=== PATIENT | male | born 1950 | race Two or more races ===

== ENCOUNTER 2017-08-06 07:45 | Outpatient (CLI) | payer OTHER | END 2017-08-06 07:47 | disposition home or self-care (01) | LOC: RAD 07:45 | DX: M12.842 Other specific arthropathies, not elsewhere classified, left hand (principal); M19.042 Primary osteoarthritis, left hand ==

== ENCOUNTER 2018-11-16 10:01 | Outpatient (CLI) | payer OTHER | END 2018-11-16 16:25 | disposition home or self-care (01) | LOC: RAD 10:01 | DX: M13.842 Other specified arthritis, left hand (principal) ==

== ENCOUNTER → 2024-02-13 | Emergency (ER) | payer OTHER ==
[~2024-02-13] VITALS: Ht 172.7 cm; Wt 54.4 kg
[~2024-02-13] MED LIST: CLINDAMYCIN PHOSPHATE 150 MG/ML (300mg) ONE; CLINDAMYCIN PHOSPHATE 150 MG/ML (600mg) IM ONE; TETANUS & DIPHTHERIA TOX,ADULT 0.5 ML VIAL IM ONE; TETANUS DIPHTHERIA TOX. ADSOR 5 ML VIAL IM ONE
[2024-02-13 19:51] LABS: HEMATOCRIT 39.6 % (39.0-48.0); HEMOGLOBIN 13.3 g/dL (13-16.00); MEAN CELL VOLUME 85.1 fL (80.0-100.00); MEAN CORPUSCULAR HEMOGLOBIN 28.5 pg (27.00-32.0); MEAN CORPUSCULAR HGB CONC 33.5 g/dl (32.0-36.0); PLATELET COUNT 556 K/uL (150-450); RED BLOOD COUNT 4.66 M/uL (4.00-6.00); RED CELL DISTRIBUTION WIDTH 14.4 % (11.5-14.5)
[2024-02-13 20:16] LABS: CALCIUM 9.4 mg/dL (8.5-10.1); CREATININE SERUM 0.74 mg/dL (0.70-1.30); GFR 103.97; POTASSIUM 4.92 mEq/L (3.5-5.1)
== END | disposition left against medical advice (07) ==
LOC: ER 17:23
PROVIDERS: Nurse Practitioner Family
DX: L03.113 Cellulitis of right upper limb (principal)
CPT/HCPCS: 36415; 90471; 90714; 96372; 99282; J1670; J3490

== ENCOUNTER → 2025-06-25 | Emergency (ER) | payer OTHER ==
[~2025-06-25] VITALS: Ht 172.7 cm; Wt 59.0 kg
[~2025-06-25] MED LIST changes: -CLINDAMYCIN PHOSPHATE 150 MG/ML (300mg) ONE; +KETOROLAC TROMETHAMINE 30 MG VIAL IM ONE; +METRONIDAZOLE500 MG PO; -TETANUS DIPHTHERIA TOX. ADSOR 5 ML VIAL IM ONE
== END | disposition home or self-care (01) ==
LOC: ER 02:09
DX: S90.811A Abrasion, right foot, initial encounter (principal)
CPT/HCPCS: 36415; 90471; 90714; 96372; 99282; J1670; J1885; J3490

== ENCOUNTER 2025-06-29 14:16 | Inpatient (IN) | payer OTHER ==
[~2025-06-29] VITALS: Ht 172.7 cm; Wt 59.0 kg
--- NOTE | 2025-06-29 15:28 | NUR ---
PTE ALERTA Y ORIENTADO X3 REFIERE VENIR POR ULCERAS EN EL PIE DERECHO. PTE REFIERE SER FUMADOR DE ANOS. SE ALEJANDRO S/V Y SE UBICA.
[2025-06-29] MEDS ORDERED: CEFTRIAXONE SODIUM 2,000 MG VIAL IV ONE (16:15)
[2025-06-29] MEDS ORDERED: CEFTRIAXONE SODIUM 2,000 MG VIAL ONE (16:27)
[2025-06-29 16:56] LABS: BASO % 0.9 % (0.1-1.2); EOS # 0.92 (0.04-0.54); EOS % 9.1 % (0.7-7.0); LYMPH # 2.27 (1.18-3.74); LYMPH % 22.4 % (19.3-53.1); MEAN PLATELET VOLUME 8.90 fl (9.4-12.4); MONO # 0.71 (0.24-0.82); MONO % 7.0 % (4.7-12.5); NEUT # 6.09 (1.56-6.13); NEUT % 60.1 % (34.0-71.1); RED CELL DISTRIBUTION WIDTH 13.2 % (11.6-14.4)
--- NOTE | 2025-06-29 17:06 | NUR ---
PTE EVALUADO POR GLORY VALADEZ, PRESENTANDO ULCERA EN PIE DERCHO Y ANTEBRAZO DERECHO, SE RAVEN MUESTRAS DE [place]URE[place]O BAJO MEDIDAS ASEPTICAS Y SE ADMINISTRA MEDICACION JENI ORDEN MEDICA. CLIENTE VERBALIZA ENTENDER EN ESPERA DE RESULTADO Y RE-EVALUACION MEDICA.
[2025-06-29 17:17] LABS: INR 1.04
[2025-06-29 17:19] LABS: ERYTHROCYTE SEDIMENTATION RATE 36 mm/hr (0-20)
[2025-06-29 17:36] LABS: ALT/SGPT 20.0 U/L (12-78); AST/SGOT 16.0 U/L (15-37); BILIRUBIN TOTAL 0.48 mg/dL (0.3-1.2); BUN CREA RATIO 23.0 (7.0-25.0); CREATININE SERUM 0.79 mg/dL (0.70-1.30); GFR 95.88; GLOBULINA 5.9 G/DL (2.4-3.5); GLUCOSE FASTING 118.0 mg/dL (65-100); OSMOLALITY SERUM 282.0 MOSM/KG (275-295)
[2025-06-29] MEDS ORDERED: CEFTRIAXONE SODIUM 2,000 MG in 0.9 % SODIUM CHLORIDE 100 ML IV SCH (19:23)
[2025-06-29] MEDS ORDERED: VANCOMYCIN HCL 1,000 MG VIAL IV SCH (19:23)
[2025-06-29] MEDS ORDERED: FAMOTIDINE/PF 20 MG in 0.9 % SODIUM CHLORIDE 100 ML IV SCH (19:25)
[2025-06-29] MEDS ORDERED: MORPHINE SULFATE 4 MG/ML CARTRIDGE IV PRN (19:30)
[2025-06-29] MEDS ORDERED: FAMOTIDINE/PF 20 MG/2 ML VIAL ONE (19:45)
[2025-06-29] MEDS ORDERED: ACETAMINOPHEN 500 MG GEL..CAP PO ONE (19:45)
[2025-06-29] MEDS ORDERED: VANCOMYCIN HCL 1,000 MG VIAL ONE (19:46)
[2025-06-29] MEDS ORDERED: ACETAMINOPHEN 500 MG GEL..CAP PO SCH (20:00)
[2025-06-30 07:18] LABS: BASO % 1.0 % (0.1-1.2); EOS # 1.28 (0.04-0.54); EOS % 12.6 % (0.7-7.0); LYMPH # 2.05 (1.18-3.74); LYMPH % 20.1 % (19.3-53.1); MEAN PLATELET VOLUME 9.00 fl (9.4-12.4); MONO # 0.84 (0.24-0.82); MONO % 8.3 % (4.7-12.5); NEUT # 5.87 (1.56-6.13); NEUT % 57.6 % (34.0-71.1); RED CELL DISTRIBUTION WIDTH 13.4 % (11.6-14.4)
[2025-06-30 07:20] LABS: BUN CREA RATIO 28.0 (7.0-25.0); CREATININE SERUM 0.86 mg/dL (0.70-1.30); GFR 86.93; GLUCOSE FASTING 122.0 mg/dL (65-100); OSMOLALITY SERUM 296.0 MOSM/KG (275-295)
[2025-06-30 07:45] LABS: INR 1.0
[2025-06-30 08:06] VITALS: BP 137/74
[2025-06-30] MEDS ORDERED: ACETAMINOPHEN 500 MG GEL..CAP PO ONE (08:52)
[2025-06-30] MEDS ORDERED: CEFTRIAXONE SODIUM 2,000 MG VIAL ONE (08:52)
[2025-06-30] MEDS ORDERED: FAMOTIDINE/PF 20 MG/2 ML VIAL ONE (08:53)
[2025-06-30] MEDS ORDERED: VANCOMYCIN HCL 1,000 MG VIAL ONE (08:53)
[2025-06-30] MEDS ORDERED: VANCOMYCIN HCL 5 MG/ML REDILUIDO IV NR (10:30)
[2025-06-30 14:51] VITALS: BP 117/69
[2025-06-30 18:22] VITALS: BP 148/75; O2SAT 100
[2025-06-30] MEDS ORDERED: SODIUM CHLORIDE 0.45 % 1,000 ML IV SCH (20:00)
[2025-06-30] MEDS ORDERED: NICOTINE 21MG/24HR PATCH.TD24 TD SCH (20:01)
[2025-06-30] MEDS ORDERED: VANCOMYCIN HCL 5 MG/ML REDILUIDO IV SCH (21:00)
[2025-07-01 02:38] VITALS: BP 160/85; O2SAT 99
[2025-07-01 07:51] LABS: BASO % 0.6 % (0.1-1.2); EOS # 0.89 (0.04-0.54); EOS % 8.6 % (0.7-7.0); LYMPH # 2.15 (1.18-3.74); LYMPH % 20.7 % (19.3-53.1); MEAN PLATELET VOLUME 9.50 fl (9.4-12.4); MONO # 0.72 (0.24-0.82); MONO % 6.9 % (4.7-12.5); NEUT # 6.48 (1.56-6.13); NEUT % 62.5 % (34.0-71.1); RED CELL DISTRIBUTION WIDTH 13.2 % (11.6-14.4)
[2025-07-01 08:26] LABS: ALT/SGPT 15.0 U/L (12-78); AST/SGOT 12.0 U/L (15-37); BILIRUBIN TOTAL 0.1 mg/dL (0.3-1.2); BUN CREA RATIO 35.0 (7.0-25.0); CREATININE SERUM 0.81 mg/dL (0.70-1.30); GFR 93.15; GLOBULINA 4.2 G/DL (2.4-3.5); GLUCOSE FASTING 99.0 mg/dL (65-100); OSMOLALITY SERUM 287.0 MOSM/KG (275-295)
[2025-07-01] MEDS ORDERED: PANTOPRAZOLE SODIUM 40 MG TABLET.DR PO SCH (09:00)
[2025-07-01] MEDS ORDERED: ENOXAPARIN SODIUM 40 MG/0.4 ML SYRINGE SUBCUTANEO SCH (09:00)
[2025-07-01] MEDS ORDERED: SODIUM PHOS,M-BASIC-D-BASIC 3 MMOL/ML VIAL IV NR (09:15)
[2025-07-01 09:48] VITALS: BP 143/71; O2SAT 99
[2025-07-01 18:45] VITALS: BP 137/70; O2SAT 100
[2025-07-02 04:13] VITALS: BP 102/50; O2SAT 99
[2025-07-02 11:35] VITALS: BP 134/76; BP 95/57; O2SAT 94; O2SAT 95
[2025-07-02 16:35] VITALS: BP 104/55; O2SAT 95
[2025-07-02 17:31] LABS: BUN CREA RATIO 24.0 (7.0-25.0); CREATININE SERUM 0.74 mg/dL (0.70-1.30); GFR 103.39; GLUCOSE FASTING 69.0 mg/dL (65-100); OSMOLALITY SERUM 282.0 MOSM/KG (275-295)
[2025-07-03 01:02] VITALS: BP 132/59; O2SAT 97
[2025-07-03 09:38] VITALS: BP 123/70; O2SAT 96
[2025-07-03 18:30] VITALS: BP 100/60; O2SAT 98
[2025-07-04 03:28] VITALS: BP 131/64; O2SAT 97
[2025-07-04 06:19] LABS: BASO % 0.6 % (0.1-1.2); EOS # 1.69 (0.04-0.54); LYMPH # 3.75 (1.18-3.74); LYMPH % 35.0 % (19.3-53.1); MEAN PLATELET VOLUME 9.50 fl (9.4-12.4); MONO # 0.90 (0.24-0.82); MONO % 8.4 % (4.7-12.5); NEUT # 4.25 (1.56-6.13); NEUT % 39.5 % (34.0-71.1); RED CELL DISTRIBUTION WIDTH 12.9 % (11.6-14.4)
[2025-07-04 06:38] LABS: EOS % 15.8 % (0.7-7.0)
[2025-07-04 06:57] LABS: ALT/SGPT 25.0 U/L (12-78); AST/SGOT 28.0 U/L (15-37); BILIRUBIN TOTAL 0.21 mg/dL (0.3-1.2); BUN CREA RATIO 36.0 (7.0-25.0); CREATININE SERUM 0.75 mg/dL (0.70-1.30); GFR 101.8; GLOBULINA 4.6 G/DL (2.4-3.5); GLUCOSE FASTING 90.0 mg/dL (65-100); OSMOLALITY SERUM 284.0 MOSM/KG (275-295)
[2025-07-04 09:48] VITALS: BP 108/68; O2SAT 98
[2025-07-04 18:39] VITALS: BP 119/67
[2025-07-05 03:26] VITALS: BP 97/61; O2SAT 99
[2025-07-05 09:49] VITALS: BP 98/57; O2SAT 94
[2025-07-05] MEDS ORDERED: RINGERS SOLUTION,LACTATED 1,000 ML IV STA (11:21)
[2025-07-05 22:20] VITALS: BP 99/69
[2025-07-06 03:28] VITALS: BP 110/66; O2SAT 96
[2025-07-06 10:26] VITALS: BP 115/71; O2SAT 98
[2025-07-06 21:50] VITALS: BP 109/72
[2025-07-07 01:16] VITALS: BP 108/69; O2SAT 97
[2025-07-07 10:36] VITALS: BP 92/61; O2SAT 96
[2025-07-07 18:07] VITALS: BP 131/77; O2SAT 96
[2025-07-08 02:39] VITALS: BP 123/53; O2SAT 96
[2025-07-08 10:14] VITALS: BP 125/66; O2SAT 97
[2025-07-08 18:43] VITALS: BP 115/68; O2SAT 95
[2025-07-09 01:22] VITALS: BP 97/59; O2SAT 96
[2025-07-09 09:26] VITALS: BP 122/71; O2SAT 97
[2025-07-09] MEDS ORDERED: METRONIDAZOLE500 MG PO (13:14)
== END 2025-07-09 14:36 | disposition home or self-care (01) | DRG 593 ==
LOC: ER 14:17 → SEC-K 21:59 → MEDJ 21:59
PROVIDERS: General Practice; Internal Medicine Infectious Disease; ADMIT Internal Medicine; ATTEND Internal Medicine
PROC: 0HBMXZZ Excision of Right Foot Skin, External Approach (ICD-10-PCS; principal; 2025-06-30)
PROC: BQ3LZZZ Magnetic Resonance Imaging (MRI) of Right Foot (ICD-10-PCS; 2025-06-30)
DX: L97.319 Non-pressure chronic ulcer of right ankle with unspecified severity (principal); J44.1 Chronic obstructive pulmonary disease with (acute) exacerbation; L97.419 Non-pressure chronic ulcer of right heel and midfoot with unspecified severity; D72.10 Eosinophilia, unspecified; I10 Essential (primary) hypertension; T68.XXXA Hypothermia, initial encounter; R00.1 Bradycardia, unspecified; D75.839 Thrombocytosis, unspecified; E83.39 Other disorders of phosphorus metabolism; L98.A11 Non-pressure chronic ulcer of right upper arm; A49.01 Methicillin susceptible Staphylococcus aureus infection, unspecified site; B95.5 Unspecified streptococcus as the cause of diseases classified elsewhere
CPT/HCPCS: 73221